=== PATIENT | male | born 1980 | race Caucasian/White ===

== ENCOUNTER 2023-06-14 09:13 | Outpatient (AMB) | payer OTHER, SELFPAY ==
--- NOTE | 2023-06-13 15:44 | HO.SPINEOV ---
Intake Intake Visit Reasons: radiculopathy, lumbar region Intake Note: Mr. Ragland is here today c/o low back pain/left side sciatica that radiates to left leg. 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 HPI: This 42-year-old male is suffering from left-sided back pain it radiates to his posterior buttocks and thigh with tingling on the lateral part of his left foot. The symptoms started 4 years ago and have been present most of the time. He tried an epidural steroid injection which initially gave him 14 months relief. Unfortunately, to repeat injections provided no relief. In fact, the last injection made it somewhat worse. He also did physical therapy without success. Last March he had a significant flare up and since that time the pain has been constantly present. He takes ibuprofen and Tylenol for pain control. He also notices min muscle twitching in the left leg. 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 PMH: Pilonidal cyst removal Medications: Ibuprofen and Tylenol Allergies: NKDA Social history: . Nonsmoker Physical Exam: Pleasant male. He sits deviated towards the right side. Straight leg raise is positive with radiating pain down his left leg. Ankle reflexes absent on the left side. There are subjective paresthesias in the S1 dermatome. Radiological Studies: MRI done at [facility] on 11/10/2022 shows a moderate-sized disc herniation compressing the left S1 nerve root. Impression/Plan: This patient is suffering from a left S1 radiculopathy due to a left L5-S1 disc herniation compressing the S1 nerve root. The symptoms have been going on for 4 years. Therefore I think he is a good candidate for a lumbar microdiskectomy L5-S1. We discussed the procedure possible complications and he wants to proceed. He is scheduled for June 10 2023. He will need to obtain a new MRI to make sure that the disc herniation is still present. His line of work will need him to be out of work for 6 weeks postoperatively. He will have the report faxed of the new MRI to our office for review. Thank you for allowing me to participate in your patients care. total time spent was 50 minutes in counseling ,coordination of plan, personal review of imaging, surgical decision making and subsequent plan Nolan John MD, PhD Spine Fellowship Trained Neurosurgeon Director, [facility] Coding Level of Care Code New Pt Level 4 (70599) Diagnoses Lumbar disc herniation with radiculopathy M51.16
== END 2023-06-14 10:08 | disposition home or self-care (01) ==
PROVIDERS: PCP Family Medicine; Referring Provider Family Medicine; Visit Provider Neurological Surgery
DX: M51.16 Intervertebral disc disorders with radiculopathy, lumbar region (principal)
CPT/HCPCS: 99204

== ENCOUNTER → 2023-06-14 09:13 | Outpatient (BNVA) | payer OTHER, SELFPAY | PROVIDERS: PCP Family Medicine; Visit Provider Neurological Surgery ==

== ENCOUNTER 2023-07-11 13:14 | Outpatient (AMB) | payer OTHER, SELFPAY ==
--- NOTE | 2023-07-11 13:22 | HO.SPINEOV ---
Intake Intake Visit Reasons: MRI follow up Intake Note: Mr. Ragland is here today to F/u MRI/ Account Director Required: No Allergies No Known Allergies Allergy (Verified 06/14/23 09:24) Assessment & Plan Assessment & Plan (1) Lumbar disc herniation with radiculopathy: Code(s): M51.16 - Intervertebral disc disorders with radiculopathy, lumbar region Plan Dear colleague On 07/11/2023, I saw for preoperative visit Aniket Ragland to review his new MRI that was performed on 07/05/2023. He continues to suffer from severe left lumbar radiculopathy in an S1 distribution. He stands deviated towards the right side. The latest MRI is unchanged from the prior MRI, which means that the significant disc herniation L5-S1 is still present and compressing the left S1 nerve root. He is scheduled to undergo a lumbar microdiskectomy on 08/10/2023. Thank you for letting me take care of your patient. Nolan John MD, PhD Spine Fellowship Trained Neurosurgeon Director, [facility] Coding Level of Care Code Est Pt Level 2 (47004) Diagnoses Lumbar disc herniation with radiculopathy M51.16
== END 2023-07-11 14:51 | disposition home or self-care (01) ==
PROVIDERS: PCP Family Medicine; Visit Provider Neurological Surgery
DX: M51.16 Intervertebral disc disorders with radiculopathy, lumbar region (principal)
CPT/HCPCS: 99212

== ENCOUNTER → 2023-07-11 13:14 | Outpatient (BNVA) | payer OTHER, SELFPAY | PROVIDERS: PCP Family Medicine; Visit Provider Neurological Surgery ==

== ENCOUNTER 2023-08-10 08:51 | Day surgery (SDC) | payer OTHER, SELFPAY ==
[2023-08-01 10:09] VITALS: BMI 25.2
--- NOTE | 2023-08-09 09:44 | P.CONAN_ITS ---
Documented by User: Mona Rincon NP 08/09/23 09:44 HPI - Anesthesia Eval Consult details Narrative: 42yo M for L5-S1 Microlumbar discectomy PMFSH Active Problems Active Problems: All Active Problems Lumbar disc herniation with radiculopathy (Acute) Past Medical History Medical History Carpal tunnel syndrome GERD (gastroesophageal reflux disease) Back pain Hx of migraine headaches Surgical History Surgical History History of excision of pilonidal cyst Social History Social History (Updated 08/01/23 @ 10:12 by Razia Burnett RN) Household Members: Family Housing: House Are you a primary patient care provider to a significant other at home: Yes (children) Do you presently have visiting nurse or other home services: No Patient Tobacco Use Status: Never used Tobacco e-Cigarette/Vaping Use: Never Used Use of substances other than those prescribed or required for medical reasons: No Have you been hit, kicked, punched, or otherwise hurt by someone within the past year? If so, by whom?: No Are you DNR?: No Advance Directives: No Advance Directives Information Provided: Yes Advance Directives on File: No Recently lost weight without trying: No Nutrition Risks: No Nutritional Risk Poor oral hygiene: No Meds Allergies Allergy/AdvReac Type Severity Reaction Status Date / Time bee pollen [bee stings] Allergy Unknown Verified 08/10/23 09:01 Home Medications ?Medication ?Instructions ?Recorded ?Confirmed ?Last Taken ?Type acetaminophen 500 mg tablet 1,000 mg PO QID PRN Back Pain 08/01/23 08/01/23 Unknown History (Acetaminophen Extra Strength) ibuprofen 800 mg tablet 800 mg PO BID PRN Back Pain 08/01/23 08/01/23 08/02/23 History Exam Height,Weight and Vital Signs: Height 5 ft 8 in Weight 75.296 kg Assessment and Plan Assessment Anesthesia Assessment: Chart Reviewed Documented by User: Rhonda Nicole MD 08/10/23 09:38 [facility] Past Medical History Medical History Carpal tunnel syndrome GERD (gastroesophageal reflux disease) Back pain Hx of migraine headaches Family History Family history of problems with anesthesia: No Surgical History Surgical History History of excision of pilonidal cyst History of Problems with Anesthesia: No Social History Social History (Updated 08/01/23 @ 10:12 by Razia Burnett RN) Household Members: Family Housing: House Are you a primary patient care provider to a significant other at home: Yes (children) Do you presently have visiting nurse or other home services: No Patient Tobacco Use Status: Never used Tobacco e-Cigarette/Vaping Use: Never Used Use of substances other than those prescribed or required for medical reasons: No Have you been hit, kicked, punched, or otherwise hurt by someone within the past year? If so, by whom?: No Are you DNR?: No Advance Directives: No Advance Directives Information Provided: Yes Advance Directives on File: No Recently lost weight without trying: No Nutrition Risks: No Nutritional Risk Poor oral hygiene: No Meds Allergies Allergy/AdvReac Type Severity Reaction Status Date / Time bee pollen [bee stings] Allergy Unknown Verified 08/10/23 09:01 Home Medications ?Medication ?Instructions ?Recorded ?Confirmed ?Last Taken ?Type acetaminophen 500 mg tablet 1,000 mg PO QID PRN Back Pain 08/01/23 08/01/23 Unknown History (Acetaminophen Extra Strength) ibuprofen 800 mg tablet 800 mg PO BID PRN Back Pain 08/01/23 08/01/23 08/02/23 History Exam Airway Mallampati Class: II TM Dist: >3cm Neck ROM: Full Assessment and Plan Assessment Anesthesia Assessment: Anesthesia Plan Discussed Final Anesthetic Review Family History of Problems with Anesthesia: No History of Problems with Anesthesia: No NPO: Yes ASA Class: II Final Preanesthetic Review: No Changes in Pt Med Stat, Meds/Allgs Chart Reviewed, Consent Obtained/Reviewed and Anes Risks/Benef Reviewed Patient Risk: Low Procedure Risk: Intermediate Anesthetic Plan Anesthetic Plan: GA Disposition: Standard PACU
[2023-08-10] VITALS (9 sets, daily range): BP systolic 133–164; BP diastolic 79–99; PULSE 74–111; RESP 14–16; TEMP 36–37; O2SAT 98–100; BMI 22.5
--- NOTE | ~2023-08-10 | FL_ITS ---
EXAMINATION: XR FLUOROSCOPY WITH IMAGES CLINICAL INFORMATION: L5-S1 microlumbar discectomy, left prone position, fluoroscopic guidance provided. COMPARISON: None available. TECHNIQUE: Fluoroscopy Supervised By: Dr. Tavares John Fluoroscopy Time: 3.5 seconds Cumulative Dose: 0.9033 mGy-cm DAP: 0.2816 Gy-cm2 Images: 2 FINDINGS: Fluoroscopic guidance provided for procedure performed by Dr. Tavares John. Surgical hardware overlies the lower lumbar spine. Please refer to the operative report for more detailed evaluation. FL/FL guidance in OR IMPRESSION: Fluoroscopic guidance provided for procedure performed by Dr. Tavares John. Please refer to the operative report for more detailed evaluation.
--- NOTE | 2023-08-10 06:58 | P.HPSUR_ITS ---
Pre-Procedural Eval Section A - 24 Hr Update-Section A only Date of Service: 08/10/23 The patient is an INPATIENT: No Changes since office visit: No Cold of Flu in the past 2 weeks, No New Medical Problems, No Changes in Medication and No Patient answered all questions The patient has been examined within 24 hours of the surgical procedure. The History & Physical has been completed within 30 days and I have reviewed it.: No Section B - Complete if H&P > 30 days Chief Complaint: Intervertebral disc disorders with radiculopathy, Allergies: Allergies Allergy/AdvReac Type Severity Reaction Status Date / Time bee pollen [bee stings] Allergy Unknown Verified 08/01/23 14:42 Review of Systems Sugical H&P ROS: Negative: Constitution, Cardiovascular, Respiratory, Neurological, Psychiatric, Hem-Onc, Allergic/Immunologic, Gastrointestinal, Genitourinary, Musculoskeletal, Integumentary, Endocrine and Eyes/Ea rs/Nose/Throat Exam Surgical H&P Exam: Not Evaluated: HEENT, Not Evaluated: Heart, Not Evaluated: Lungs, Not Evaluated: Extremities, Not Evaluated: Abdomen, Not Evaluated: Skin and Not Evaluated: Neurological Plan Diagnosis/Plan: Unchanged left L5-S1 microdiskectomy . Time Spent With Patient Time: Total time managing care of this patient today __6__ minutes.
[2023-08-10] MEDS: methocarbamoL 750 MG TABLET PO (09:10)
[2023-08-10] MEDS: Gabapentin 300 MG CAPSULE PO (09:11)
[2023-08-10] MEDS: Lactated Ringers 1,000 ML 100 ML IVCONT (09:30)
--- NOTE | 2023-08-10 09:53 | P.DS_ITS ---
DS: Providers Provider Date of Service: 08/10/23 Date of discharge: 08/10/23 Primary care physician: Timoteo Rodney MD Admitting clinician: Nolan John DS: Diagnosis Discharge Diagnosis (1) Lumbar disc herniation with radiculopathy: Status: Acute DS: Summary Time Attestation Discharge Coordination Time (in mins): 5 Quality: Safe Use of Opioids Does Pt have an Active Cancer Diagnosis on the Problem List?: No Quality: Stroke Does the patient have a stroke diagnosis?: No Physical Exam Vital Signs: Vital Signs: Last Vital Signs Temp 98.6 F 08/10/23 09:17 Pulse 96 08/10/23 09:17 Resp 15 08/10/23 09:17 BP 164/87 H 08/10/23 09:17 Pulse Ox 99 08/10/23 09:17 O2 Del Method Room Air 08/10/23 09:17 BMI result Body Mass Index 22.5 Discharge Plan Discharge Patient Disposition: Home, Self-Care Referrals: Timoteo Rodney MD [Primary Care Provider] - 1 Week Discharge Medications: New oxycodone 5 mg tablet 5 mg PO Q4H PRN (Reason: pain) Qty: 30 0RF Rx Instructions: Partial Fill upon patient request. docusate sodium [Colace] 100 mg capsule 100 mg PO BID Qty: 20 0RF Continued ibuprofen 800 mg Tablet 800 mg PO BID PRN (Reason: Back Pain) acetaminophen [Acetaminophen Extra Strength] 500 mg Tablet 1,000 mg PO QID PRN (Reason: Back Pain) Discharge Orders: Discharge Order (Routine); Ordered 08/10/23 Ordered By: Jarett Pimentel Diet: Advance to usual diet Activity on Discharge: As tolerated Activity Restrictions/Additional Instructions: After your spinal surgery we ask you to observe the following restrictions/guidelines: Activity: It is normal to feel some discomfort as you increase your activity, but that will improve with time. We ask you avoid heavy lifting or acitivities that cause pain. As a general rule, 8lbs is a safe limit for lifting right after surgery. Walk as much as you feel comfortable but not to exhaustion. You will feel extra tired the first few days after surgery. Stay well hydrated. It is OK to walk up and down stairs You may return to driving when you are off narcotics (such as vicodin, oxycodone, dilaudid, etc), and you are back to normal functional capacity. If you have any concerns please check with office before driving. Return to work is specific to each patient and each surgery, so please speak with your doctor/PA at first follow up. Please bring paperwork such as FMLA at that time if you need it filled out. Medications: For optimum pain control, it is best to start with a combination of 500 mg of Tylenol every 4 hours with 600 mg of Motrin every 8 hours, and use narcotics as needed in between for breakthrough pain. We will give you a short supply of narcotics after surgery (usually one weeks worth). If you need more please call the office but do not use more than prescribed. You will need to give our office 48 hours notice if you need narcotics refilled and we do not fill narcotics on weekends or evenings. If you are on a narcotic, it is a good idea to take a stool softener such as colace or senna to avoid constipation If you take blood thinner such as aspirin, Plavix, Coumadin, Effient, Eliquis etc for conditions such as Afib, DVT, Pulmonary embolus, coronary disease, stents etc please speak with your surgeon about specific details as to when you can resume these medications. You can resume NSAIDs on post op day 1 (eg: Motrin, Naproxen, etc). Follow up: Please call the office, , after surgery to arrange a 3 week follow up for wound check. Wound Care: You may remove your dressing on the first day after surgery. ?You may ?leave open to air. Please do not remove the steri strips underneath. they will fall off on their own in one week. IT IS NORMAL FOR THE WOUND TO OOZE OR BE BLOODY FOR A FEW DAYS AFTER SURGERY. ?IF THIS HAPPENS JUST PLACE NEW DRESSING OVER IT TO AVOID STAINING CLOTHES. You may shower on post op day # 1 We ask that you do not let the water soak the wound. If it does get wet, just towel dry lightly. Please do not scrub your incision or place any type of chemical/ointment on the wound. No tub baths, pools or jacuzzis for one month. If you have any leaking or redness from your wound, or fevers, please call offi ce Print Language: Greenlandic
--- NOTE | 2023-08-10 10:41 | P.OP_ITS ---
Operative Note Operative Note Date of Service: 08/10/23 Narrative: Preoperative diagnosis: Left S1 radiculopathy due to disc herniation Postoperative diagnosis: Same Procedure: Left L5-S1 microdiskectomy with microscope Surgeon: Nolan John MD, PhD Prism Inspector: wendy Christine This patient is suffering from a classic left S1 radiculopathy. MRI shows a disc herniation compressing the left S1 nerve root. The patient was offered a lumbar microdiskectomy to decompress the nerve root. The procedure complications were explained. The patient was consented. The patient was brought to the operating room and endotracheally intubated. The patient was turned in a prone position on the Joe frame. Prepping and draping was done followed by time-out. A mid lumbar incision was made followed by release of the paravertebral muscles on the left side to expose the L5-S1 interspace. An intraoperative x-rays obtained to confirm the correct level. The microscope was brought in. A L5 laminotomy was done followed by opening of the flavum ligament. The S1 nerve root was identified and retracted medially to expose the L5-S1 disc space. I could palpate a disc herniation medial from the S1 nerve root, which I carefully removed with a pituitary. The disc space was inspected and any residual disc fragments were removed. This resulted in an excellent decompression of the S1 nerve root. Hemostasis was done. The microscope was removed. Marcaine was injected intramuscularly.The incision was closed in two layers. Steri-Strips used to approximate seizure. An op-site were taken there was used to cover the incision. All sponge and needle counts were correct. Patient was extubated and transported in stable condition to recovery room. this procedure was done with the aid of a physician emergency medicine physician assistant who performed the initial exposure until the microscope was brought in and performed the closure of the incision. Anesthesia: General Blood loss: 10 mL Complications: None Specimen: None Surgical time: 45 minutes Disposition: Discharge home
== END 2023-08-10 12:50 | disposition home or self-care (01) ==
PROVIDERS: PCP Family Medicine; Visit Provider Neurological Surgery
PROC: (CPT 63030; principal; 2023-08-10 10:30)
DX: M51.16 Intervertebral disc disorders with radiculopathy, lumbar region (principal); Z79.1 Long term (current) use of non-steroidal anti-inflammatories (NSAID)
CPT/HCPCS: 63030; J0131; J0690; J1100; J1170; J2250; J2405; J2704; J3010

== ENCOUNTER → 2023-08-10 08:51 | Outpatient (BNV) | payer OTHER, SELFPAY | PROVIDERS: PCP Family Medicine; Visit Provider Neurological Surgery | DX: M51.16 Intervertebral disc disorders with radiculopathy, lumbar region (principal) | CPT/HCPCS: 63030; 99499 ==

== ENCOUNTER 2023-08-31 10:51 | Outpatient (AMB) | payer OTHER, SELFPAY ==
--- NOTE | 2023-08-31 10:03 | A.SPINEOV_ITS ---
Intake Visit Reasons: 1 post op Intake Note: Mr. Ragland is here today for his 1st post-op appointment. 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 He reports he is satisfied with the surgery and feels much better than he did pre-operatively. The patient reports he is up walking around and completing the majority of his ADLs. He reports that he no longer suffers from his left-sided shooting radiculopathy. He still reports some pulling sensation in his posterior left thigh, and some tingling in his lateral left foot. We discussed how these are likely just related to postoperative inflammation, and will resolve over time. We also discussed activity guidelines regarding microdiskectomy surgery, again the patient was encouraged to refrain from any significant lifting. No new neurological deficits. Patient is able to ambulate well, rises from a seated position without difficulty. Posterior incision site is closed, well healing, with no signs of drainage. We will follow-up with the patient in 6 weeks for their 2nd postoperative visit. At that time we will get x-rays to review with the patient. Josef John MD,PhD [facility] Coding Level of Care Code Global (74751) Diagnoses S/P lumbar microdiscectomy Z98.890
== END 2023-08-31 11:15 | disposition home or self-care (01) ==
PROVIDERS: PCP Family Medicine; Visit Provider Physician Assistant
DX: Z98.890 Other specified postprocedural states (principal)
CPT/HCPCS: 99024

== ENCOUNTER → 2023-08-31 10:51 | Outpatient (BNVA) | payer OTHER, SELFPAY | PROVIDERS: PCP Family Medicine; Visit Provider Physician Assistant ==

== ENCOUNTER 2023-10-09 09:02 | Outpatient (AMB) | payer OTHER, SELFPAY ==
--- NOTE | 2023-10-09 09:15 | A.SPINEOV_ITS ---
Intake Visit Reasons: 2nd Post-op with Xrays Intake Note: Mr. Ragland is here for his 2nd post op. Pulmonology Technician Required: No Allergies bee pollen [bee stings] Allergy (Verified 08/10/23 09:01) Unknown Assessment & Plan Assessment & Plan (1) S/P lumbar microdiscectomy: Code(s): Z98.890 - Other specified postprocedural states Category: Surgical Plan Procedure: Left L5-S1 microdiskectomy Aniket comes in today for a follow-up visit after his left-sided L5-S1 microdiskectomy completed on 08/10/2023. Overall he is doing very well. He continues to report resolution of symptoms except still has a pulling sensation in his posterior left thigh and some numbness in his left lateral foot. He asked many questions regarding the postoperative healing course including return to activity/exercise. I answered all these questions to the best of my ability. I advised him to refrain from strength training for the foreseeable future and to focus on cardiovascular exercise and body-weight exercises. In addition to this he asked for a letter to return to work which I provided to him. No new neurological deficits. The patient is able to ambulate well and rises from a seated position without difficulty. Gait is normal. Aniket continues to do very well since his surgery. I expect that the pulling sensation and intermittent left-sided foot numbness will subside as he continues to heal from his surgery. We did discuss that numbness something that may or may not resolve as this is potentially related to nerve damage. He understands this. There is no need for continued routine follow-up with Aniket. Josef John MD,PhD [facility] Coding Level of Care Code Global (56855) Diagnoses S/P lumbar microdiscectomy Z98.890
== END 2023-10-09 09:39 | disposition home or self-care (01) ==
PROVIDERS: PCP Family Medicine; Visit Provider Physician Assistant
DX: Z98.890 Other specified postprocedural states (principal)
CPT/HCPCS: 99024

== ENCOUNTER → 2023-10-09 09:02 | Outpatient (BNVA) | payer OTHER, SELFPAY | PROVIDERS: PCP Family Medicine; Visit Provider Physician Assistant ==